=== PATIENT | female | born 1970 | race Caucasian/White ===

== ENCOUNTER → 2017-09-27 | Day surgery (SDC) | payer OTHER ==
--- NOTE | 2017-09-26 17:33 | History & Physical Pre-Op ---
General Information and HPI History of Present Illness: Sayra is a 39-year-old female with a long-standing was complaining of pain to both her left and right heels. The patient has undergone an extended course of conservative care, including shoe gear and activity modification, rest, immobilization and courses of NSAIDs. None of this is yielded her any significant relief. The patient presents today for preoperative surgical consultation. Allergies/Medications Allergies: Coded Allergies: NO KNOWN ALLERGIES (10/31/12) Home Med list Ibuprofen (Motrin 600 MG Tab) 600 MG TAB 1 TAB PO Q6P PRN PAIN Levothyroxine Sodium 50 MCG TABLET 1 TAB PO DAILY AC THYROID (Reported) Meclizine (Antivert) 25 MG PAC 1 TAB PO TID DIZZINESS/VERTIGO Ondansetron (Zofran Odt) 4 MG ODT 1 TAB SL Q4-6 PRN NAUSEA Simvastatin (Zocor 10MG Tab) 10 MG TAB 1 TAB PO DAILY CHOLESTEROL (Reported) Past History Medical History Neurological: MIGRAINES Cardiovascular: HIGH CHOLESTEROL Endocrine: HYPOTHYROID Surgical History Pertinent Surgical History: non-contributory Review of Systems Review of Systems: Unremarkable except for that noted in history of present illness Exam & Diagnostic Data Physical Exam: Lungs clear bilaterally. Heart sounds rate and rhythm regular. Lower extremity physical exam demonstrates intact pedal pulses bilaterally. Pulses dorsalis pedis and posterior tibial arteries are palpable bilaterally. Patient without any sensory motor deficits. Reflexes grossly intact. Patient noted to have significant pain with palpation of plantar medial aspect of the left and right heels. Negative Tinel sign noted with percussion the posterior tibial nerve. Ankle range of motion noted to be diminished, especially in dorsiflexion. Assessment/Plan Assessment/Plan: Plantar fasciitis left and right feet. A lengthy discussion reviewing both surgical and conservative options was held the patient at bedside and the patient elects to go forward with surgery despite the risks. As Ranked By This Provider Problem List: 1. Plantar fascial fibromatosis Attending MD Review Statement Attending Statement Attending MD Statement: examined this patient
[~2017-09-27] VITALS: Ht 180.3 cm; Wt 112.9 kg
[~2017-09-27] MED LIST: ANTIVERT 25MG #1 PAC PO; FIORICET 300 MG1 CAP PO; FLEXERIL10 MG PO; LEVOTHYROXINE0.05 M1 PO; MOTRIN 600 MG600 MG PO; MOTRIN IB200 MG PO; ZOCOR 10MG TAB10 MG PO; ZOFRAN4 M1 SL
--- NOTE | 2017-09-27 08:28 | Operative Report ---
Operative/Inv Procedure Report Surgery Date: 09/27/17 Name of Procedure: 1 gastrocnemius recession right 2 gastrocnemius recession left 3 debridement Achilles tendinosis right 4 debridement Achilles tendinosis left 5 intraoperative administration of ankle block anesthesia Pre-Operative Diagnosis: 1 gastrocnemius equinus right 2 gastrocnemius equinus left 3 Achilles tendinosis right 4 Achilles tendinosis left Post-Operative Diagnosis: The same Estimated Blood Loss: scant Surgeon/Director Physical: Thang Dawson DPM Anesthesia: moderate sedation, block Operative/Procedure Note Note: After obtaining informed consent the patient was brought to the operating room and placed on the operating table in supine position. The patient isn't securely fastened to the operating table utilizing safety belt. After administration of IV sedation, 10 mL of 0.5% Marcaine plain was obtained about the patient's left and right ankles. 2 well-padded calf tourniquets were placed about the patient's left and right upper cast. 2 g of Ancef were delivered intravenously times one dose. Left right feet were then scrubbed prepped and draped in usual aseptic manner. The right lower extremity was elevated to examine to limb, which point the calf tourniquet inflated 250 mmHg. Attention directed to the distal medial right leg, where a linear incision was made 2 finger rest distal to the medial gastrocnemius muscle. Dissection was then carried down to the medial margin of the gastroc fascia, with the peritenon was . An interval was developed between the peritenon and the fascia. Gastroc the meniscus recession was performed after the sural nerve was identified and protected. The deep tissues reapproximated 4-0 Vicryl skin edges reprepped for nylon. Attention was then directed to the posterior aspect of the right ankle where the Achilles was noted to insert posteriorly. Partial developed 62 K wire and the tendon was ablated at 5 mm intervals overlying the area of greatest tenderness. The dissection was then carried down and the tissue was from its origin overlying the enthesophyte. Within the incision was closed with 4-0 nylon. The dressings were then cleaned and [place] dressings and Coban were placed about the patient's right lower extremity. The tourniquet was then deflated. Next, the left lower extremity is elevated to examine to limb at which point the calf tourniquet inflated 250 mmHg. Attention directed distal medial left leg, where a linear incision was made 2 fingerbreadths distal and medial gastrocnemius muscle. An interval was developed between the peritenon and fascia. The sural nerve was identified protected and a gastrocnemius recession was performed. The deep tissues reports a 4-0 Vicryl skin edges reprepped for nylon. Attention was then directed to the posterior aspect of the left heel at the level of the insertion of the Achilles, where a partial developed a sterile 62 K wire. Attention was then ablated utilizing the Yoovi micro-ablator. Again, the tendon was released from its origin on the enthesophyte. Again tissues reports a 4-0 Vicryl and the incision dressed with [place] dressings and Coban. The patient is noted tolerate both procedure and anesthesia well and the patient was transported from the operating room to recovery by sent stable best assess intact to bilateral feet.
== END ==
LOC: STS 04:43
DX: M21.6X1 Other acquired deformities of right foot (principal); M21.6X2 Other acquired deformities of left foot; M72.2 Plantar fascial fibromatosis; M76.62 Achilles tendinitis, left leg; M76.61 Achilles tendinitis, right leg; M67.873 Other specified disorders of tendon, right ankle and foot
CPT/HCPCS: J0690; J1100; J1885; J2001; J2250